=== PATIENT | female | born 1980 | race Hispanic/Latino ===

== ENCOUNTER 2017-11-04 12:03 | Emergency (ER) | payer OTHER ==
[2017-11-04] MEDS ORDERED: AMOXICILLIN 500 MG CAPSULE PO ONE (12:37)
[2017-11-04] MEDS ORDERED: KETOROLAC TROMETHAMINE 60 MG/2 ML VIAL ONE (12:37)
== END 2017-11-04 12:55 | disposition home or self-care (01) ==
LOC: EDH 12:03
DX: K04.7 Periapical abscess without sinus (principal)
CPT/HCPCS: 81025; 96372; 99283; J1885

== ENCOUNTER 2018-06-15 17:38 | Emergency (ER) | payer OTHER | END 2018-06-15 19:05 | disposition home or self-care (01) | LOC: EDH 17:38 | DX: R07.89 Other chest pain (principal); F45.8 Other somatoform disorders; F41.1 Generalized anxiety disorder; M19.90 Unspecified osteoarthritis, unspecified site; F31.9 Bipolar disorder, unspecified; E07.9 Disorder of thyroid, unspecified | CPT/HCPCS: 71046; 93005 ==

== ENCOUNTER 2018-08-14 10:08 | Emergency (ER) | payer SELFPAY | END 2018-08-14 10:18 | disposition home or self-care (01) | LOC: EDH 10:08 | DX: M77.11 Lateral epicondylitis, right elbow (principal); F31.9 Bipolar disorder, unspecified; E07.9 Disorder of thyroid, unspecified; Z87.891 Personal history of nicotine dependence | CPT/HCPCS: 99281 ==

== ENCOUNTER 2019-08-21 20:39 | Emergency (ER) | payer SELFPAY | END 2019-08-21 22:03 | disposition home or self-care (01) | LOC: EDH 20:39 | DX: F41.1 Generalized anxiety disorder (principal); M19.90 Unspecified osteoarthritis, unspecified site; F31.9 Bipolar disorder, unspecified; E07.9 Disorder of thyroid, unspecified | CPT/HCPCS: 99281 ==

== ENCOUNTER 2021-06-05 09:27 | Emergency (ER) | payer SELFPAY ==
[~2021-06-05] VITALS: Ht 157.5 cm; Wt 74.8 kg
[2021-06-05 10:12] LABS: APPEARANCE,URINE Clear (CLEAR); BILIRUBIN,URINE Negative (NEGATIVE); COLOR,URINE Yellow (YELLOW); GLUCOSE, URINE (UA) Negative (NEGATIVE); KETONES,URINE Negative (NEGATIVE); LEUKOCYTE ESTERASE ,URINE Negative (NEGATIVE); NITRATE,URINE Negative (NEGATIVE); OCCULT BLOOD,URINE Moderate (NEGATIVE); PROTEIN,URINE Negative (NEGATIVE); UROBILINOGEN,URINE 0.2 mg/dL (0.2-1.0)
[2021-06-05 10:17] LABS: HCG,QUAL RESULT NEGATIVE (NEGATIVE)
[2021-06-05] MEDS ORDERED: KETOROLAC 60 MG VIAL (30MG/ML) IM ONE (11:30)
[2021-06-05] MEDS ORDERED: ORPHENADRINE CITRATE 30 MG/ML ML IM ONE (11:30)
[2021-06-05] MEDS ORDERED: IBUP-2070 PO (13:01)
[2021-06-05] MEDS ORDERED: CYCL-309 PO (13:01)
[2021-06-05 13:22] VITALS: BP 112/66
== END 2021-06-05 13:21 | disposition home or self-care (01) ==
LOC: EDH 09:27
DX: M48.061 Spinal stenosis, lumbar region without neurogenic claudication (principal); M47.816 Spondylosis without myelopathy or radiculopathy, lumbar region; F17.200 Nicotine dependence, unspecified, uncomplicated
CPT/HCPCS: 72131; 81003; 81025; 96372 ×2; 99284; J1885; J2360

== ENCOUNTER 2022-01-28 11:01 | Emergency (ER) | payer OTHER ==
[~2022-01-28] VITALS: Ht 160 cm; Wt 74.8 kg
[~2022-01-28 11:01] MED LIST: CYCL-309 PO; IBUP-2070 PO
[2022-01-28 11:36] LABS: APPEARANCE,URINE CLEAR (CLEAR); BILIRUBIN,URINE NEGATIVE (NEGATIVE); COLOR,URINE YELLOW (YELLOW); GLUCOSE, URINE (UA) NEGATIVE (NEGATIVE); KETONES,URINE NEGATIVE (NEGATIVE); LEUKOCYTE ESTERASE ,URINE NEGATIVE (NEGATIVE); NITRATE,URINE NEGATIVE (NEGATIVE); OCCULT BLOOD,URINE MODERATE (NEGATIVE); PH,URINE 6.5 (5.0-8.0); PROTEIN,URINE NEGATIVE (NEGATIVE); UROBILINOGEN,URINE 0.2 mg/dL (0.2-1.0)
[2022-01-28 12:20] LABS: BACTERIA,URINE Rare /HPF (None Seen); SQUAMOUS EPITHELIAL CELL,UR Rare /HPF (0-2); WBC,URINE 0-1 /HPF (0-1)
[2022-01-28] MEDS ORDERED: CYCLOBENZAPRINE HCL 10 MG TABLET PO ONE (12:30)
[2022-01-28] MEDS ORDERED: KETOROLAC 60 MG VIAL (30MG/ML) IM ONE (12:30)
[2022-01-28] MEDS ORDERED: CYCL10TA16 PO (12:51)
[2022-01-28] MEDS ORDERED: NAPR-1180 PO (12:51)
[2022-01-28 13:10] VITALS: BP 113/64
== END 2022-01-28 13:15 | disposition home or self-care (01) ==
LOC: EDH 11:01
DX: S39.012A Strain of muscle, fascia and tendon of lower back, initial encounter (principal); F17.200 Nicotine dependence, unspecified, uncomplicated; Z79.1 Long term (current) use of non-steroidal anti-inflammatories (NSAID); X58.XXXA Exposure to other specified factors, initial encounter; Y93.89 Activity, other specified; Y92.89 Other specified places as the place of occurrence of the external cause; Y99.8 Other external cause status
CPT/HCPCS: 99284; 81001; 72100; 96372; J1885

== ENCOUNTER 2022-02-14 20:01 | Emergency (ER) | payer OTHER ==
[~2022-02-14] VITALS: Ht 160 cm; Wt 74.8 kg
[~2022-02-14 20:01] MED LIST changes: +CYCL10TA16 PO; +NAPR-1180 PO
[2022-02-14 20:33] LABS: HCG,QUALITATIVE URINE NEGATIVE (NEGATIVE)
[2022-02-14 20:35] LABS: APPEARANCE,URINE CLEAR (CLEAR); BILIRUBIN,URINE NEGATIVE (NEGATIVE); COLOR,URINE COLORLESS (YELLOW); GLUCOSE, URINE (UA) NEGATIVE (NEGATIVE); KETONES,URINE NEGATIVE (NEGATIVE); LEUKOCYTE ESTERASE ,URINE NEGATIVE Leu/uL (NEGATIVE); NITRATE,URINE NEGATIVE (NEGATIVE); OCCULT BLOOD,URINE MODERATE (NEGATIVE); PH,URINE 5.5 (5.0-8.0); PROTEIN,URINE NEGATIVE (NEGATIVE); UROBILINOGEN,URINE 0.2 mg/dL (0.2-1.0)
[2022-02-14 20:42] LABS: SQUAMOUS EPITHELIAL CELL,UR FEW /HPF (0-2); WBC,URINE 0-1 /HPF (0-1)
[2022-02-14 20:43] LABS: BASOPHILS % (AUTO) 0.8 % (0.0-5.0); EOSINOPHILS % (AUTO) 1.8 % (0.0-8.0); HEMATOCRIT 38.4 % (36-48); LYMPHOCYTES % (AUTO) 28.2 % (21.0-51.0); MEAN CORPUSCULAR HEMOGLOBIN 31.5 pg (27.0-33.0); MEAN CORPUSCULAR HGB CONC 33.6 g/dL (32.0-36.0); MEAN CORPUSCULAR VOLUME 93.7 fL (79-99); NEUTROPHILS % (AUTO) 60.9 % (40.0-77.0); PLATELET COUNT (AUTO) 240 K/uL (130-400); RED CELL DISTRIBUTION WIDTH 12.6 % (11.0-15.5)
[2022-02-14 20:51] LABS: CREATININE 0.7 mg/dL (0.5-1.5)
[2022-02-14 20:53] LABS: INR 0.94 (0.85-1.15); PROTHROMBIN TIME 10.3 SEC (9.6-11.6)
[2022-02-14 20:55] LABS: PARTIAL THROMBOPLASTIN TIME 27.5 SEC (26.3-35.5)
[2022-02-14 21:00] LABS: ALBUMIN 4.2 g/dL (3.5-5.0); TOTAL PROTEIN, SERUM 7.6 g/dL (6.0-8.3)
[2022-02-14 21:02] LABS: B-TYPE NATRIURETIC PEPTIDE 52 pg/mL (0-100)
[2022-02-14] MEDS ORDERED: IBUP-1493 PO (21:15)
[2022-02-14 21:31] VITALS: BP 131/75
== END 2022-02-14 21:44 | disposition home or self-care (01) ==
LOC: EDH 20:01
DX: M54.12 Radiculopathy, cervical region (principal); R07.89 Other chest pain; H53.8 Other visual disturbances; F17.200 Nicotine dependence, unspecified, uncomplicated; Z79.1 Long term (current) use of non-steroidal anti-inflammatories (NSAID)
CPT/HCPCS: 36415; 71045; 80053; 81001; 81025; 83880; 84484; 85025; 85378; 85610; 85730; 93005

== ENCOUNTER 2022-04-25 09:49 | Emergency (ER) | payer OTHER ==
[~2022-04-25] VITALS: Ht 160 cm; Wt 74.4 kg
[~2022-04-25 09:49] MED LIST changes: +IBUP-1493 PO
[2022-04-25] MEDS ORDERED: LIDOCAINE HCL 2% VISCOUS 15 ML UDCUP PO ONE (13:00)
[2022-04-25] MEDS ORDERED: ONDANSETRON ODT 4MG TAB SL ONE (13:00)
[2022-04-25] MEDS ORDERED: MAG/ALUM/SIMETH 30 ML UDCUP PO ONE (13:00)
[2022-04-25] MEDS ORDERED: HYDROCORTISONE 25 MG SUPPOSITORY PR SCH (13:00)
[2022-04-25] MEDS ORDERED: FAMOTIDINE 20MG TAB PO ONE (13:00)
[2022-04-25 13:10] LABS: BASOPHILS % (AUTO) 0.8 % (0.0-5.0); EOSINOPHILS % (AUTO) 3.1 % (0.0-8.0); HEMATOCRIT 39.2 % (36-48); LYMPHOCYTES % (AUTO) 25.4 % (21.0-51.0); MEAN CORPUSCULAR HEMOGLOBIN 31.3 pg (27.0-33.0); MEAN CORPUSCULAR HGB CONC 33.9 g/dL (32.0-36.0); MEAN CORPUSCULAR VOLUME 92.2 fL (79-99); MONOCYTES % (AUTO) 7.8 % (3.0-13.0); NEUTROPHILS % (AUTO) 62.4 % (40.0-77.0); PLATELET COUNT (AUTO) 255 K/uL (130-400); RED BLOOD CELL COUNT(AUTO) 4.25 MIL/uL (4.00-5.50); RED CELL DISTRIBUTION WIDTH 12.5 % (11.0-15.5); WHITE BLOOD COUNT (AUTO) 10.5 K/uL (4.8-10.8)
[2022-04-25 13:33] LABS: APPEARANCE,URINE CLEAR (CLEAR); BILIRUBIN,URINE NEGATIVE (NEGATIVE); COLOR,URINE YELLOW (YELLOW); GLUCOSE, URINE (UA) NEGATIVE (NEGATIVE); KETONES,URINE NEGATIVE (NEGATIVE); LEUKOCYTE ESTERASE ,URINE NEGATIVE Leu/uL (NEGATIVE); NITRATE,URINE NEGATIVE (NEGATIVE); OCCULT BLOOD,URINE MODERATE (NEGATIVE); PROTEIN,URINE NEGATIVE (NEGATIVE); UROBILINOGEN,URINE 0.2 mg/dL (0.2-1.0)
[2022-04-25 13:38] LABS: ALBUMIN 3.9 g/dL (3.5-5.0); CREATININE 0.7 mg/dL (0.5-1.5); TOTAL PROTEIN, SERUM 7.8 g/dL (6.0-8.3)
[2022-04-25 13:44] LABS: HCG,QUALITATIVE URINE NEGATIVE (NEGATIVE)
[2022-04-25 14:27] LABS: BACTERIA,URINE Rare /HPF (None Seen); SQUAMOUS EPITHELIAL CELL,UR Rare /HPF (0-2); WBC,URINE 0-1 /HPF (0-1)
[2022-04-25] MEDS ORDERED: DOCU-116 PO (15:00)
[2022-04-25] MEDS ORDERED: ONDA4TAB10 PO (15:00)
[2022-04-25] MEDS ORDERED: WITC1MED TP (15:00)
[2022-04-25] MEDS ORDERED: FAMO-136 PO (15:00)
[2022-04-25] MEDS ORDERED: HYDR30CR79 RC (15:00)
[2022-04-25] MEDS ORDERED: PANT40TA PO (15:00)
[2022-04-25 15:13] VITALS: BP 110/58
== END 2022-04-25 15:14 | disposition home or self-care (01) ==
LOC: EDH 09:49
DX: K29.70 Gastritis, unspecified, without bleeding (principal); N83.201 Unspecified ovarian cyst, right side; K64.4 Residual hemorrhoidal skin tags; Z79.899 Other long term (current) drug therapy; Z98.890 Other specified postprocedural states
CPT/HCPCS: 36415; 74176; 80053; 81001; 81025; 83690; 85025

== ENCOUNTER 2023-04-20 12:17 | Emergency (ER) | payer OTHER ==
[~2023-04-20] VITALS: Ht 160 cm; Wt 81.6 kg
[~2023-04-20 12:17] MED LIST changes: +DOCU-116 PO; +FAMO-136 PO; +HYDR30CR79 RC; +ONDA4TAB10 PO; +PANT40TA PO; +WITC1MED TP
[2023-04-20] MEDS ORDERED: DiphenhydrAMINE HCL 50 MG/ML VIAL IM ONE (13:00)
[2023-04-20] MEDS ORDERED: PROCHLORPERAZINE 10MG/2ML INJ IV ONE (13:00)
[2023-04-20 13:12] LABS: BASOPHILS # (AUTO) 0.04 K/uL (0.00-0.20); BASOPHILS % (AUTO) 0.4 % (0.0-5.0); EOSINOPHILS # (AUTO) 0.14 K/uL (0.00-0.70); EOSINOPHILS % (AUTO) 1.6 % (0.0-8.0); HEMATOCRIT 38.1 % (36-48); IMMATURE GRANULOCYTE ABSOLUTE 0.04 K/uL (0-1); LYMPHOCYTES # (AUTO) 1.9 K/uL (1.0-4.8); LYMPHOCYTES % (AUTO) 20.7 % (21.0-51.0); MEAN CORPUSCULAR HEMOGLOBIN 32.3 pg (27.0-33.0); MEAN CORPUSCULAR HGB CONC 34.4 g/dL (32.0-36.0); MEAN CORPUSCULAR VOLUME 94.1 fL (79-99); MONOCYTES # (AUTO) 0.6 K/uL (0.1-1.0); MONOCYTES % (AUTO) 6.6 % (3.0-13.0); NEUTROPHILS # (AUTO) 6.3 K/uL (1.8-7.7); NEUTROPHILS % (AUTO) 70.3 % (40.0-77.0); PLATELET COUNT (AUTO) 266 K/uL (130-400); RED BLOOD CELL COUNT(AUTO) 4.05 MIL/uL (4.00-5.50); RED CELL DISTRIBUTION WIDTH 12.8 % (11.0-15.5); WHITE BLOOD COUNT (AUTO) 8.9 K/uL (4.8-10.8)
[2023-04-20 13:19] LABS: CREATININE 0.8 mg/dL (0.5-1.5)
[2023-04-20 13:23] LABS: ALBUMIN 3.6 g/dL (3.5-5.0); BILIRUBIN,TOTAL 0.2 mg/dL (0.2-1.0); TOTAL PROTEIN, SERUM 7.3 g/dL (6.0-8.3)
[2023-04-20 14:20] LABS: ERYTHROCYTE SEDIMENTATION RATE 15 MM/HR (0-20)
[2023-04-20 14:28] VITALS: BP 121/74; PULSE 62; RESP 16; O2SAT 99
[2023-04-20] MEDS ORDERED: SUMA25TA9 PO (14:47)
== END 2023-04-20 15:00 | disposition home or self-care (01) ==
LOC: EDH 12:17
DX: G43.909 Migraine, unspecified, not intractable, without status migrainosus (principal); F41.9 Anxiety disorder, unspecified; F17.200 Nicotine dependence, unspecified, uncomplicated; Z79.899 Other long term (current) drug therapy; Z98.890 Other specified postprocedural states
CPT/HCPCS: 99285; 96374; 70450; 80053; 85025; 85651; 36415; 96372; J1200; J0780

== ENCOUNTER 2024-05-15 08:59 | Emergency (ER) | payer BC ==
[~2024-05-15] VITALS: Ht 160 cm; Wt 79.4 kg
[~2024-05-15 08:59] MED LIST changes: +ONDA-243 PO; -ONDA4TAB10 PO; +SUMA25TA9 PO
--- NOTE | 2024-05-15 09:26 | ERN ---
ED Note History of Present Illness Stated Complaint: DIZZY Chief Complaint: Dizzy/Light Headed Time Seen by MD: 09:03 Dictation: Patient is a 44-year-old female with a past medical history of hypothyroidism, bipolar disorder, and anxiety presents to the ED for dizziness and weakness. Patient states she felt dizzy this morning with the episode lasting about 10 minutes accompanied by blurry vision and weakness. She states she sounds like she had to fall but was able to grab onto something to regain her balance. She denies falling. Patient denies any chest pain, shortness of breath, or flu-like symptoms. Patient admits to some nausea but denies any vomiting. Allergies: Coded Allergies: No Known Drug Allergies (Unverified Allergy, Unknown, 08/21/19) Home Meds Active Scripts Cephalexin Monohydrate (Keflex) 500 Mg Cap, 1 CAP PO BID for 10 Days, #20 CAP 0 Refills Prov:ALEXEI LY MD 05/15/24 Prednisone (Prednisone) 5 Mg Tab.ds.pk, 0 PO AD for 6 Days, #48 TAB 0 Refills 6 day dose pack taper Prov:ALEXEI LY MD 05/15/24 Sumatriptan Succinate (Sumatriptan Succinate) 25 Mg Tablet, 25 MG PO DAILY PRN for HEADACHE, #7 TAB Prov:ELIF SEGURA MD 04/20/23 Tomasz Nieto (Hemorrhoidal Medicated Wipes) 1 Each Med..pad, 1 EACH TP TID, #15 EA Prov:TERRANCE HECTOR 04/25/22 Hydrocortisone (Anusol-Hc) 30 Gm Cream..g., 30 GM RC TID, #1 TUBE Prov:TERRANCE HECTOR 04/25/22 Docusate Sodium (Colace) 100 Mg Capsule, 100 MG PO BID, #30 CAP Prov:TERRANCE HECTOR 04/25/22 Famotidine (Pepcid) 20 Mg Tablet, 20 MG PO DAILY, #10 TAB Prov:TERRANCE HECTOR 04/25/22 Pantoprazole Sodium (Protonix) 40 Mg Tablet.dr, 40 MG PO DAILY, #30 TAB Prov:TERRANCE HECTOR 04/25/22 Ondansetron (Ondansetron Odt) 4 Mg Tab.rapdis, 4 MG PO TID, #10 TAB Prov:MARIA ANTONIA HECTORRamyJACKSON APPRAISER LAND 04/25/22 Ibuprofen (Motrin/Advil) 800 Mg Tab, 800 MG PO TIDP PRN for PAIN, #30 TAB Prov:SHERYL COTO MD 02/14/22 Cyclobenzaprine HCl (Flexeril) 10 Mg Tab, 10 MG PO BID, #30 TAB Prov:DARREN TAYLOR 01/28/22 Naproxen (Naprosyn) 500 Mg Tablet, 500 MG PO BIDPC, #60 TAB Prov:DARREN TAYLOR 01/28/22 Cyclobenzaprine HCl (Cyclobenzaprine HCl) 10 Mg Tablet, 10 MG PO TID PRN for back pain, #15 TAB 0 Refills Prov:HIMANSHU KNIGHT MD 06/05/21 Ibuprofen (Ibuprofen) 600 Mg Tablet, 600 MG PO Q6H PRN for PAIN, #30 TAB 0 Refills Prov:HIMANSHU KNIGHT MD 06/05/21 Past Medical History Past Medical History: Anxiety, Bipolar, Hypothyroid Surgical History: None Surgical History Other: Tubal ligation Family History: Negative Social History: Smokers LMP: May 09, 2024 : 9 Para: 6 Aborts: 3 Review of System Dictation Constitutional-no chills, weight loss/gain, fever Eyes-no injury, pain, redness and discharge ENT-no injury, pain, swelling Cardiovascular no chest pain, palpitations, edema Respiratory no shortness of breath, cough, wheezing Abdomen/GI-no abdominal pain, diarrhea, constipation, vomiting, nausea Back no injury and pain Genitourinary no injury, bleeding and discharge Musculoskeletal/extremities no injury, deformity Skin no rash, discoloration Neuro-no headache, numbness, tingling, seizures, tremors. Positive for dizziness and weakness Psych-no suicidal ideation, homicidal ideation, hallucinations, depression, anxiety, memory loss Initial Vital Sign VS Vital Signs Date Time Temp Pulse Resp B/P (MAP) Pulse Ox O2 Delivery O2 Flow Rate FiO2 05/15/24 09:00 98.1 65 20 122/80 99 Room Air 0 05/15/24 10:18 21 Physical Exam Dictation VITAL SIGNS: Reviewed. GENERAL APPEARANCE: Alert, oriented x3, no acute distress, obese. HEAD AND FACE: Non-traumatic. EYES: PERRL, pink conjunctivas, eyelid no trauma, anterior chamber clear. NOSE: No discharge, no bleeding. OROPHARYNX: Mouth normal, teeth no caries, tongue pink. Pharynx clear, no erythema. Tonsils no exudates, no abscesses noted. Mucous membrane moist. NECK: Supple, non-tender, no thyromegaly, no masses, no JVD, no bruits. BREAST: Deferred. CHEST: No tenderness, no crepitus, no paradoxical movement, no retractions. LUNGS: Clear, well-ventilated, symmetric, no rales, no wheezing, no rhonchi, no stridor, good breath sounds bilaterally. HEART: Regular rate, regular rhythm, no murmur, no gallops. VASCULAR: No peripheral edema. ABDOMEN: Soft, positive bowel sounds, nondistended, no guarding, nontender, no rebound, no masses no hepatomegaly, no splenomegaly, no Norton's sign, no hernias. RECTAL: Swelling, lesion, possible pilonidal cyst GENITAL: Deferred. NEUROLOGICAL: Normal speech, gross motor function intact, gross sensory function intact. MUSCULOSKELETAL: Neck nontender, full range of motion, back nontender, full range of motion. EXTREMITIES: Nontender, full range of motion. SKIN: Color pink, dry, no turgor, no rash, no lacerations, no abrasions, no contusions. LYMPHATICS: Deferred. Results (Laboratory/Radiology) Laboratory/Radiology ED Course ED Course Medical Decision Making [facility] MDM INITIAL IMPRESSION Initial history and physical concerning for dehydration, anemia. Contributing medical problems: Menorrhagia I have reviewed the triage nursing notes and vital signs. Initial plan: Laboratory evaluation, UA, and Covid swab DATA REVIEW I have reviewed additional NN, repeat VS, and monitoring where indicated. Heart rate, blood pressure, and O2 saturation are acceptable. ED COURSE Interventions: Reassessment: DISPOSITION Final diagnostic impression: UTI, lymphadenitis I discussed my findings, clinical impression and treatment recommendations with the patient. My final plan for disposition was made based upon -mild risk of complications and potential morbidity of the patient's condition. -Discussion with the patient regarding management options. Patient will be discharged on antibiotics and steroids and advised to follow up with primary care physician DX & DISP Disposition: Discharge Departure Impression: Primary Impression: Urinary tract infection Additional Impression: Lymphadenitis Condition: Stable Scripts Cephalexin Monohydrate (Keflex) 500 Mg Cap 1 CAP PO BID for 10 Days, #20 CAP 0 Refills Prov: ALEXEI LY MD 05/15/24 Prednisone (Prednisone) 5 Mg Tab.ds.pk 0 PO AD for 6 Days, #48 TAB 0 Refills 6 day dose pack taper Prov: ALEXEI LY MD 05/15/24 Referrals: ART VEGA (PCP) Time of Disposition: 11:22 I have reviewed I have reviewed the case I WAS PRESENT AND PARTICIPATED IN THE CARE OF THIS PATIENT ALONGSIDE WITH THE RESIDENT PHYSICIAN. I HAVE REVIEWED AND PERSONALLY MADE AND APPROVED THE MANAGEMENT PLAN THAT IS DOCUMENTED IN THE NOTE BY MYSELF WITH THE RESIDENT PHYSICIAN. I ACKNOWLEDGED FOR RESPONSIBILITY FOR THE PATIENT'S MANAGEMENT PLAN. I have examined patient ALEXEI LY MD May 15, 2024 09:26 WALTER AGUAYO MD May 20, 2024 07:28
--- NOTE | 2024-05-15 09:28 | EKG ---
[facility] Test Date: 2024-05-15 Test Time: 09:07:30 Pat Name: JANET HARRIS Department: ED Room: Gender: F Instructor Pilot: [id number] : 1980 Requested By: WALTER AGUAYO Order Number: [id number] Reading MD: Kvng Neville Measurements Intervals [place] Rate: 59 P: 48 ME: 138 QRS: 78 QRSD: 100 T: 62 QT: 451 QTc: 446 Interpretive Statements Sinus rhythm Probable inferior infarct, old Compared to ECG 02/14/2022 19:46:57 Myocardial infarct finding now present Electronically Signed On 05-15-2024 17:04:53 IS/IT PROJECT MANAGER by Kvng Neville Please click the below link to view image of tracing.
[2024-05-15 09:38] LABS: BASOPHILS # (AUTO) 0.06 K/uL (0.00-0.20); BASOPHILS % (AUTO) 0.8 % (0.0-5.0); EOSINOPHILS # (AUTO) 0.19 K/uL (0.00-0.70); EOSINOPHILS % (AUTO) 2.5 % (0.0-8.0); HEMATOCRIT 38.3 % (36-48); IMMATURE GRANULOCYTE ABSOLUTE 0.04 K/uL (0-1); LYMPHOCYTES # (AUTO) 1.8 K/uL (1.0-4.8); MEAN CORPUSCULAR HEMOGLOBIN 30.3 pg (27.0-33.0); MEAN CORPUSCULAR HGB CONC 32.6 g/dL (32.0-36.0); MONOCYTES # (AUTO) 0.5 K/uL (0.1-1.0); MONOCYTES % (AUTO) 6.4 % (3.0-13.0); NEUTROPHILS # (AUTO) 5.1 K/uL (1.8-7.7); NEUTROPHILS % (AUTO) 66.8 % (40.0-77.0); PLATELET COUNT (AUTO) 244 K/uL (130-400); RED BLOOD CELL COUNT(AUTO) 4.12 MIL/uL (4.00-5.50); RED CELL DISTRIBUTION WIDTH 12.8 % (11.0-15.5); WHITE BLOOD COUNT (AUTO) 7.6 K/uL (4.8-10.8)
[2024-05-15 09:40] LABS: APPEARANCE,URINE CLEAR (CLEAR); BILIRUBIN,URINE NEGATIVE (NEGATIVE); COLOR,URINE LIGHT-YELLOW (YELLOW); GLUCOSE, URINE (UA) NEGATIVE (NEGATIVE); KETONES,URINE NEGATIVE (NEGATIVE); LEUKOCYTE ESTERASE ,URINE 25 Leu/uL (NEGATIVE); NITRATE,URINE NEGATIVE (NEGATIVE); OCCULT BLOOD,URINE MODERATE (NEGATIVE); PROTEIN,URINE NEGATIVE (NEGATIVE); UROBILINOGEN,URINE 0.2 mg/dL (0.2-1.0)
[2024-05-15 09:41] LABS: ADD UA MICROSCOPIC YES
[2024-05-15 09:43] LABS: MUCUS,URINE RARE LPF (None Seen); SQUAMOUS EPITHELIAL CELL,UR RARE /HPF (0-2); WBC,URINE 0-1 /HPF (0-1)
[2024-05-15 09:44] LABS: CREATININE 0.8 mg/dL (0.5-1.0); POTASSIUM 4.3 mmol/L (3.5-5.1)
[2024-05-15 09:54] LABS: CREATINE KINASE, TOTAL 118 U/L (21-232)
[2024-05-15] MEDS: 0.9%NACL 1000ML 1,000 ML IV ONE (10:07)
--- NOTE | 2024-05-15 11:03 | HMCIMG ---
US SOFT TISSUE NECK REASON: tender lymph node on right. COMPARISON: None TECHNIQUE: Soft tissue neck ultrasound study was performed. FINDINGS: There is right cervical lymph node measuring 10 x 5 x 10 mm. IMPRESSION: Right cervical lymph node measuring 10 x 5 x 10 mm.
[2024-05-15] MEDS ORDERED: PRED5TAB44 PO (11:25)
[2024-05-15] MEDS ORDERED: CEPH500B PO (11:25)
[2024-05-15 11:33] VITALS: BP 129/70; PULSE 63; RESP 16; TEMP 97.7; O2SAT 99
== END 2024-05-15 11:44 | disposition home or self-care (01) ==
LOC: EDH 08:59
DX: N39.0 Urinary tract infection, site not specified (principal); E03.9 Hypothyroidism, unspecified; F17.200 Nicotine dependence, unspecified, uncomplicated; F31.9 Bipolar disorder, unspecified; Z79.899 Other long term (current) drug therapy; Z98.51 Tubal ligation status
CPT/HCPCS: 99284; 96360; 96361; 82550; 84484; 80048; 84703; 85025; 81001; 36415; 76536; 93005; J7030

== ENCOUNTER 2024-06-26 06:40 | Emergency (ER) | payer BC ==
[~2024-06-26] VITALS: Ht 157.5 cm; Wt 81.6 kg
[~2024-06-26 06:40] MED LIST changes: +CEPH500B PO; +PRED5TAB44 PO
--- NOTE | 2024-06-26 07:34 | ERN ---
General Chief Complaint: Nausea,Vomiting,Diarrhea Stated Complaint: VOMITING Time Seen by MD: 07:02 History of Present Illness Initial Comments 44-year-old female, history of hypothyroidism and gastritis, denies surgical history, presents for general body weakness, on and off fever, vomiting, loose stools, sore throat and a mild cough over the last few days. On and off symptoms. They improve with Tylenol. No abdominal tenderness or pain, no chest pain, no dyspnea. No sputum production. Allergies: Coded Allergies: No Known Drug Allergies (Unverified Allergy, Unknown, 08/21/19) Home Meds Active Scripts Cephalexin Monohydrate (Keflex) 500 Mg Cap, 1 CAP PO BID for 10 Days, #20 CAP 0 Refills Prov:ALEXEI LY MD 05/15/24 Prednisone (Prednisone) 5 Mg Tab.ds.pk, 0 PO AD for 6 Days, #48 TAB 0 Refills 6 day dose pack taper Prov:ALEXEI LY MD 05/15/24 Sumatriptan Succinate (Sumatriptan Succinate) 25 Mg Tablet, 25 MG PO DAILY PRN for HEADACHE, #7 TAB Prov:ELIF SEGURA MD 04/20/23 Tomasz Nieto (Hemorrhoidal Medicated Wipes) 1 Each Med..pad, 1 EACH TP TID, #15 EA Prov:TERRANCE HECTORP 04/25/22 Hydrocortisone (Anusol-Hc) 30 Gm Cream..g., 30 GM RC TID, #1 TUBE Prov:TERRANCE HECTORP 04/25/22 Docusate Sodium (Colace) 100 Mg Capsule, 100 MG PO BID, #30 CAP Prov:TERRANCE HECTORP 04/25/22 Famotidine (Pepcid) 20 Mg Tablet, 20 MG PO DAILY, #10 TAB Prov:TERRANCE HECTOR [facility] 04/25/22 Pantoprazole Sodium (Protonix) 40 Mg Tablet.dr, 40 MG PO DAILY, #30 TAB Prov:TERRANCE HECTOR 04/25/22 Ondansetron (Ondansetron Odt) 4 Mg Tab.rapdis, 4 MG PO TID, #10 TAB Prov:TERRANCE HECTORP 04/25/22 Ibuprofen (Motrin/Advil) 800 Mg Tab, 800 MG PO TIDP PRN for PAIN, #30 TAB Prov:SHERYL COTO MD 02/14/22 Cyclobenzaprine HCl (Flexeril) 10 Mg Tab, 10 MG PO BID, #30 TAB Prov:DARREN TAYLOR 01/28/22 Naproxen (Naprosyn) 500 Mg Tablet, 500 MG PO BIDPC, #60 TAB Prov:DARREN TAYLOR 01/28/22 Cyclobenzaprine HCl (Cyclobenzaprine HCl) 10 Mg Tablet, 10 MG PO TID PRN for back pain, #15 TAB 0 Refills Prov:HIMANSHU KNIGHT MD 06/05/21 Ibuprofen (Ibuprofen) 600 Mg Tablet, 600 MG PO Q6H PRN for PAIN, #30 TAB 0 Refills Prov:HIMASNHU KNIGHT MD 06/05/21 Past Medical History Past Medical History: Hyperthyroid Past Surgical History: None Surgical History Other: Tubal ligation Family History Family History: Negative Social History Social History: Smokers Female( History) : 9 Para: 6 Aborts: 3 ROS Dictation CONSTITUTIONAL: General body weakness fever HEAD/FACE: No signs of trauma. EENT: Sore throat RESPIRATORY: No cough, no orthopnea, no SOB, no stridor, no wheezing. CARDIOVASCULAR: No chest pain, no edema, no palpitations, no syncope. GASTROINTESTINAL/ABDOMINAL: Vomiting diarrhea GENITOURINARY: No abnormal discharge, no dysuria, no frequent urination, no hematuria. No complaints of pain in the genitals. MUSCULOSKELETAL: No back pain, no gout, no joint pain, no joint swelling, no muscle pain, no muscle stiffness, no neck pain. INTEGUMENTARY: No change in color, no change in hair/nails, no dryness, no lesion, no lumps, no rash. NEUROLOGICAL/PSYCH: No anxiety, not depressed, no emotional problem, no headache, no numbness, no pre-existing deficit, no history of seizures, no tremors, no weakness. HEMATOLOGIC/LYMPHATIC: Not anemic, no history of blood clots, no apparent bleeding, no bruising, glands not swollen. All Systems Negative, Except as Noted. Physical Exam Physical Exam Dictation VITAL SIGNS: Reviewed. GENERAL APPEARANCE: Alert, oriented x3, no acute distress. HEAD AND FACE: Non-traumatic. EYES: PERRL, pink conjunctivas, eyelid no trauma, anterior chamber clear. EARS: Pinnas intact and no signs of trauma or erythema. Ear canals clear and no discharge. TMs no erythema. NOSE: No discharge, no bleeding. OROPHARYNX: Mouth normal, teeth no caries, tongue pink. Pharynx clear, no erythema. Tonsils no exudates, no abscesses noted. Mucous membrane moist. NECK: Supple, non-tender, no thyromegaly, no masses, no JVD, no bruits. BREAST: Deferred. CHEST: No tenderness, no crepitus, no paradoxical movement, no retractions. LUNGS: Clear, well-ventilated, symmetric, no rales, no wheezing, no rhonchi, no stridor, good breath sounds bilaterally. HEART: Regular rate, regular rhythm, no murmur, no gallops. VASCULAR: No peripheral edema. ABDOMEN: Soft, positive bowel sounds, nondistended, no guarding, nontender, no rebound, no masses no hepatomegaly, no splenomegaly, no Norton's sign, no hernias. RECTAL: Deferred. GENITAL: Deferred. NEUROLOGICAL: Normal speech, gross motor function intact, gross sensory function intact. MUSCULOSKELETAL: Neck nontender, full range of motion, back nontender, full range of motion. EXTREMITIES: Nontender, full range of motion. SKIN: Color pink, dry, no turgor, no rash, no lacerations, no abrasions, no contusions. LYMPHATICS: Deferred. Results Laboratory and Microbiology Lab and Micro Result Laboratory Tests Test 06/26/24 06:05 06/26/24 06:51 Urine Color LIGHT-YELLOW (YELLOW) Urine Appearance CLEAR (CLEAR) Urine pH 6.0 (5.0-8.0) Urine Specific [place] 1.008 (1.001-1.031) Urine Protein NEGATIVE mg/dL (NEGATIVE) Urine Glucose (UA) NEGATIVE mg/dL (NEGATIVE) Urine Ketones NEGATIVE mg/dL (NEGATIVE) Urine Occult Blood MODERATE (NEGATIVE) H Urine Nitrate NEGATIVE (NEGATIVE) Urine Bilirubin NEGATIVE mg/dL (NEGATIVE) Urine Urobilinogen 0.2 mg/dL (0.2-1.0) Urine Leukocyte Esterase 75 [place]/uL (NEGATIVE) H Urine RBC 6-10 /HPF (0-1) H Urine WBC 2-5 /HPF (0-1) H Urine Squamous Epithelial Cells FEW /HPF (0-2) Urine Bacteria RARE /HPF (None Seen) Urine HCG, Qualitative NEGATIVE (NEGATIVE) Influenza Type A Antigen Negative For Type A Influenza Type B Antigen Negative For Type B SARS-CoV-2 Antigen (Rapid) PRESUMPTIVE NEGATIVE Group A Streptococcus Rapid negative (NEGATIVE) ED Course Orders Procedure Category Date Status Time Urinalysis Profile LAB 06/26/24 Complete 07:02 ,Urine Test LAB 06/26/24 Complete 07:02 Covid19 (Sars Antigen LAB 06/26/24 Complete Rapid) 07:02 Influenza Type A & B, LAB 06/26/24 Complete Rapid 07:02 Rapid (Group A Strep) LAB 06/26/24 Complete 07:02 Ondansetron Odt 4mg PHA 06/26/24 Complete Tab (Zofran 4mg Odt) 07:30 Culture Urine MARLEE 06/26/24 In Process 07:49 Current Medications Medications (Trade) Dose Ordered Sig/Brandie Route PRN Reason Start Time Stop Time Status Last Admin Dose Admin Ondansetron HCl (zoFRAN 4MG ODT) 4 mg ONCE ONCE SL 06/26/24 07:30 06/26/24 07:31 DC 06/26/24 07:43 Vital Signs Date Time Temp Pulse Resp B/P (MAP) Pulse Ox O2 Delivery O2 Flow Rate FiO2 06/26/24 07:50 98.1 60 18 112/66 99 Room Air* 0 21 06/26/24 06:57 98.1 74 19 119/74 100 Room Air* 0 21 06/26/24 06:57 98.1 74 18 118/74 98 Room Air DX & DISP Disposition: Discharge Departure Impression: Primary Impression: Flu-like symptoms Additional Impression: UTI (urinary tract infection) Condition: Stable Scripts Ondansetron (Ondansetron Odt) 4 Mg Tab.rapdis 1 TAB PO Q6HPRN PRN for nausea/vomiting for 3 Days, #9 TAB 0 Refills Prov: JACKSON AYERS DO 06/26/24 Amoxicillin/Potassium Clav (Amox Tr-K Clv 875-125 mg Tab) 875 Mg-125 Mg Tablet 1 TAB PO BID for 7 Days, #14 TAB 0 Refills Prov: JACKSON AYERS DO 06/26/24 Additional Instructions: Your symptoms are consistent with a flu-like illness. The flu & COVID swabs were negative. Based on your urinalysis you also may have a urinary tract infection. Alternate Tylenol and ibuprofen as needed for fever or discomfort. These medications are [id number]. I have prescribed ondansetron dissolvable tabs to use as needed for nausea and vomiting. I have prescribed amoxicillin / clavulanic acid, which is an antibiotic. Use as needed. Please follow up with the primary doctor if you continue with symptoms in 72 hours. Return to the emergency department as needed. Referrals: ART VEGA (PCP) JACKSON AYERS DO Jun 26, 2024 07:34
[2024-06-26 07:37] LABS: RAPID GROUP A STREP negative (NEGATIVE)
[2024-06-26 07:43] LABS: APPEARANCE,URINE CLEAR (CLEAR); BILIRUBIN,URINE NEGATIVE (NEGATIVE); COLOR,URINE LIGHT-YELLOW (YELLOW); GLUCOSE, URINE (UA) NEGATIVE (NEGATIVE); KETONES,URINE NEGATIVE (NEGATIVE); LEUKOCYTE ESTERASE ,URINE 75 Leu/uL (NEGATIVE); NITRATE,URINE NEGATIVE (NEGATIVE); OCCULT BLOOD,URINE MODERATE (NEGATIVE); PROTEIN,URINE NEGATIVE (NEGATIVE); UROBILINOGEN,URINE 0.2 mg/dL (0.2-1.0)
[2024-06-26] MEDS: ondanSETRON ODT 4MG TAB SL ONE (07:43)
[2024-06-26 07:46] LABS: INFLUENZA TYPE A Negative For Type A (NEGATIVE); INFLUENZA TYPE B Negative For Type B (NEGATIVE)
[2024-06-26 07:48] LABS: ADD UA MICROSCOPIC YES
[2024-06-26 07:50] VITALS: BP 112/66; PULSE 60; RESP 18; TEMP 98.1; O2SAT 99
[2024-06-26 07:51] LABS: COVID19 (SARS ANTIGEN RAPID) PRESUMPTIVE NEGATIVE (NEGATIVE)
[2024-06-26 07:52] LABS: BACTERIA,URINE RARE /HPF (None Seen); SQUAMOUS EPITHELIAL CELL,UR FEW /HPF (0-2)
[2024-06-26 07:53] LABS: HCG,QUALITATIVE URINE NEGATIVE (NEGATIVE)
[2024-06-26] MEDS ORDERED: AMOX1TAB16 PO (08:04)
[2024-06-26] MEDS ORDERED: ONDA-243 PO (08:04)
== END 2024-06-26 08:14 | disposition home or self-care (01) ==
LOC: EDH 06:40
DX: N39.0 Urinary tract infection, site not specified (principal); E03.9 Hypothyroidism, unspecified; F17.200 Nicotine dependence, unspecified, uncomplicated; Z79.899 Other long term (current) drug therapy; Z98.51 Tubal ligation status; Z20.822 Contact with and (suspected) exposure to COVID-19
CPT/HCPCS: 81001; 81025; 87086; 87426; 87804; 87880; 99283

== ENCOUNTER 2024-08-08 19:17 | Emergency (ER) | payer BC ==
[~2024-08-08] VITALS: Ht 160 cm; Wt 81.6 kg
[~2024-08-08 19:17] MED LIST changes: +AMOX1TAB16 PO
--- NOTE | 2024-08-08 19:37 | ERN ---
ED Note History of Present Illness Stated Complaint: CHEST PAIN Chief Complaint: Chest Pain Time Seen by MD: 19:19 Dictation: This is a 44-year-old female who presented to the emergency room via EMS with complaints of chest pain all day today. 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 that is when she started experiencing midsternal chest pain. It lasted for about an hour or so. Throughout the day she has taken hydroxyzine intermittently with some relief. Towards the end she thought it was radiating to the left arm with numbness of the left arm and her mouth felt very dry so she came in for evaluation. History of any previous NH She denied any diaphoresis, presyncope or syncope. She usually has a history of gastroesophageal reflux symptoms and heartburn but today she denied it. Temperature 98.1 pulse 88 respirations 20 blood pressure 133/92 with a pulse oximetry of 99% on room air Has a history of hyperthyroidism and anxiety She is also a daily cigarette smoker Allergies: Coded Allergies: No Known Drug Allergies (Unverified Allergy, Unknown, 08/21/19) Home Meds Active Scripts Ondansetron (Ondansetron Odt) 4 Mg Tab.rapdis, 1 TAB PO Q6HPRN PRN for nausea/vomiting for 3 Days, #9 TAB 0 Refills Prov:JACKSON AYERS DO 06/26/24 Amoxicillin/Potassium Clav (Amox Tr-K Clv 875-125 mg Tab) 875 Mg-125 Mg Tablet, 1 TAB PO BID for 7 Days, #14 TAB 0 Refills Prov:JACKSON AYERS DO 06/26/24 Cephalexin Monohydrate (Keflex) 500 Mg Cap, 1 CAP PO BID for 10 Days, #20 CAP 0 Refills Prov:ALEXEI LY MD 05/15/24 Prednisone (Prednisone) 5 Mg Tab.ds.pk, 0 PO AD for 6 Days, #48 TAB 0 Refills 6 day dose pack taper Prov:ALEXEI LY MD 05/15/24 Sumatriptan Succinate (Sumatriptan Succinate) 25 Mg Tablet, 25 MG PO DAILY PRN for HEADACHE, #7 TAB Prov:ELIF SEGURA MD 04/20/23 Witch Emilia (Hemorrhoidal Medicated Wipes) 1 Each Med..pad, 1 EACH TP TID, #15 EA Prov:[facility] 04/25/22 Hydrocortisone (Anusol-Hc) 30 Gm Cream..g., 30 GM RC TID, #1 TUBE Prov:[facility] 04/25/22 Docusate Sodium (Colace) 100 Mg Capsule, 100 MG PO BID, #30 CAP Prov:[place],[facility] 04/25/22 Famotidine (Pepcid) 20 Mg Tablet, 20 MG PO DAILY, #10 TAB Prov:[place],[facility] 04/25/22 Pantoprazole Sodium (Protonix) 40 Mg Tablet.dr, 40 MG PO DAILY, #30 TAB Prov:[facility] 04/25/22 Ondansetron (Ondansetron Odt) 4 Mg Tab.rapdis, 4 MG PO TID, #10 TAB Prov:[facility] 04/25/22 Ibuprofen (Motrin/Advil) 800 Mg Tab, 800 MG PO TIDP PRN for PAIN, #30 TAB Prov:SHERYL COTO MD 02/14/22 Cyclobenzaprine HCl (Flexeril) 10 Mg Tab, 10 MG PO BID, #30 TAB Prov:DARREN TAYLOR 01/28/22 Naproxen (Naprosyn) 500 Mg Tablet, 500 MG PO BIDPC, #60 TAB Prov:DARREN TAYLOR 01/28/22 Cyclobenzaprine HCl (Cyclobenzaprine HCl) 10 Mg Tablet, 10 MG PO TID PRN for back pain, #15 TAB 0 Refills Prov:HIMANSHU KNIGHT MD 06/05/21 Ibuprofen (Ibuprofen) 600 Mg Tablet, 600 MG PO Q6H PRN for PAIN, #30 TAB 0 Refills Prov:HIMANSHU KNIGHT MD 06/05/21 Past Medical History Past Medical History: Anxiety, Hyperthyroid Surgical History: None Surgical History Other: Tubal ligation Family History: Negative Social History: Smokers : 9 Para: 6 Aborts: 3 RN Note Reviewed/Agreed w/PFSH: Yes Review of System Dictation Constitutional: Negative for fever,chills, and weight loss Eyes: Negative for injury, pain,redness, and discharge ENT: Negative for injury,pain or swelling Cardiovascular: Positive for chest pain, no palpitations, and edema Respiratory: Negative for shortness of breath, cough, and wheezing, Abdomen/GI: Negative for abdominal pain, nausea, vomiting, diarrhea, and constipation Back: Negative for injury and pain : Negative for injury, bleeding and discharge MS/Extremity: Negative for injury and deformity Skin: Negative for rash, and discoloration Neuro: Negative for headache, weakness, numbness, tingling, and seizure Psych: Negative for suicide ideation, homicidal ideation, and hallucinations history of anxiety Initial Vital Sign VS Vital Signs Date Time Temp Pulse Resp B/P (MAP) Pulse Ox O2 Delivery O2 Flow Rate FiO2 08/08/24 19:18 98.1 88 20 133/92 99 Room Air 0 Physical Exam Dictation General: awake, alert, NAD Head/Face: Normocephalic, atraumatic Eyes: PERRL, EOMI, vision at baseline ENT: oral cavity clear, TMs clear, no signs of infection, missing teeth Neck: Trachea midline, supple, no nuchal rigidity Cardiovascular: RRR, normal S1/S2, No MRGs, no JVD Respiratory: CTAB, no respiratory distress, No rales or wheezes Abdomen: Soft, non-tender, non-distended, normal bowel sounds, no guarding or rebound. Skin: Warm, dry, normal turgor, no rash MS/Extremity: Pulses equal, no cyanosis, neurovascular intact, FROM Neuro: COAx4, GCS 15, strength 5/5, CN 2-12 intact, normal cerebellar exam, normal gait, Psych: Normal behavior, mood, and affect normal Extremities-trace edema without any palpable cords, Homans sign is negative Results (Laboratory/Radiology) Laboratory/Radiology Laboratory Tests Test 08/08/24 19:49 08/08/24 19:56 08/08/24 21:08 Urine Color COLORLESS (YELLOW) Urine Appearance CLOUDY (CLEAR) H Urine pH 5.0 (5.0-8.0) Urine Specific [place] 1.009 (1.001-1.031) Urine Protein NEGATIVE mg/dL (NEGATIVE) Urine Glucose (UA) NEGATIVE mg/dL (NEGATIVE) Urine Ketones NEGATIVE mg/dL (NEGATIVE) Urine Occult Blood MODERATE (NEGATIVE) H Urine Nitrate NEGATIVE (NEGATIVE) Urine Bilirubin NEGATIVE mg/dL (NEGATIVE) Urine Urobilinogen 0.2 mg/dL (0.2-1.0) Urine Leukocyte Esterase 75 [place]/uL (NEGATIVE) H Urine RBC 2-5 /HPF (0-1) H Urine WBC 2-5 /HPF (0-1) H Urine Squamous Epithelial Cells MOD /HPF (0-2) Urine Other Crystals (Auto) 3 /HPF (None Seen) Urine Amorphous Crystals (Auto) RARE /LPF (None Seen) Urine Bacteria RARE /HPF (None Seen) Urine Yeast FEW /HPF (None Seen) Urine HCG, Qualitative NEGATIVE (NEGATIVE) White Blood Count 8.6 K/uL (4.8-10.8) Red Blood Count 3.92 MIL/uL (4.00-5.50) L Hemoglobin 12.5 g/dL (12.0-16.0) Hematocrit 37.3 % (36-48) Mean Corpuscular Volume 95.2 fL (79-99) Mean Corpuscular Hemoglobin 31.9 pg (27.0-33.0) Mean Corpuscular Hemoglobin Concent 33.5 g/dL (32.0-36.0) Red Cell Distribution Width 12.8 % (11.0-15.5) Platelet Count 276 K/uL (130-400) Mean Platelet Volume 11.3 fL (7.5-10.5) H Immature Granulocyte % (Auto) 0.4 % (0-1) Neutrophils (%) (Auto) 63.5 % (40.0-77.0) Lymphocytes (%) (Auto) 25.1 % (21.0-51.0) Monocytes (%) (Auto) 7.8 % (3.0-13.0) Eosinophils (%) (Auto) 2.1 % (0.0-8.0) Basophils (%) (Auto) 1.1 % (0.0-5.0) Neutrophils # (Auto) 5.4 K/uL (1.8-7.7) Lymphocytes # (Auto) 2.2 K/uL (1.0-4.8) Monocytes # (Auto) 0.7 K/uL (0.1-1.0) Eosinophils # (Auto) 0.18 K/uL (0.00-0.70) Basophils # (Auto) 0.09 K/uL (0.00-0.20) Absolute Immature Granulocyte (auto 0.03 K/uL (0-1) Nucleated Red Blood Cells 0.0 % (0.0-0.19) Sodium Level 139 mmol/L (136-145) Potassium Level 3.9 mmol/L (3.5-5.1) Chloride Level 105 mmol/L (101-111) Carbon Dioxide Level 30 mmol/L (21-32) Blood Urea Nitrogen 4 mg/dL (7-18) L Creatinine 0.9 mg/dL (0.5-1.0) Glomerular Filtration Rate Calc 80 mL/min (>90) Random Glucose 88 mg/dL (70-105) Total Calcium 8.5 mg/dL (8.5-10.1) Total Creatine Kinase 78 U/L (21-232) # Troponin I High Sensitivity 4 ng/L (4-50) 4 ng/L (4-50) B-Type Natriuretic Peptide 37 pg/mL (0-100) Labs Reviewed?: Yes EKG Comment: Twelve lead EKG done on 08/08/2024 at 7:23 p.m. showed a heart rate of 67, NH interval 147, QRS 93, QT/QTC 410/433. Impression normal sinus rhythm with a diffuse ST T changes.-pericarditis or early ischemia. I have compared it with the EKG done on 05/15/2024 and it looks exactly similar. Interpreted by ER MD Dr. Acuna X-RAY Comment: REASON: chest pain ORDERING PHYSICIAN: ELVA ACUNA MD PROCEDURE: CXR1VW - CHEST 1VW PORTABLE CHEST RADIOGRAPH INDICATION: chest pain COMPARISON: 02/14/2022 FINDINGS: Heart size is normal. The pulmonary vascularity and jonathan appear normal. No abnormal pulmonary parenchymal opacity or consolidation identified. No significant pleural effusion noted. No pneumothorax detected. IMPRESSION: No radiographic evidence for any acute cardiopulmonary process. DICTATED BY: GEMMA PAUL MD DATE: 08/08/241948 ELECTRONICALLY SIGNED BY: GEMMA PAUL MD DATE: 08/08/241951 ED Course ED Course Orders Procedure Category Date Status Time Cbc With Differential LAB 08/08/24 Complete 19:20 B-Type Natriuretic LAB 08/08/24 Complete Peptide 19:20 Chest 1vw RAD 08/08/24 Resulted 19:20 12 Lead Ekg Tracing- EKG 08/08/24 Logged Technical 19:20 ,Urine Test LAB 08/08/24 Complete 19:20 Creatine Kinase, Total LAB 08/08/24 Complete 19:20 Troponin I High LAB 08/08/24 Complete Sensitivity 19:20 Urinalysis Profile LAB 08/08/24 Complete 19:20 Basic Metabolic Panel LAB 08/08/24 Complete 19:20 Culture Urine MARLEE 08/08/24 In Process 20:06 Ketorolac PHA 08/08/24 Complete Tromethamine 15mg/Ml 20:30 Troponin I High LAB 08/08/24 Complete Sensitivity 20:53 Current Medications Medications (Trade) Dose Ordered Sig/Brandie Route PRN Reason Start Time Stop Time Status Last Admin Dose Admin Ketorolac Tromethamine (toRADol) 15 mg ONCE ONCE IV 08/08/24 20:30 08/08/24 20:31 DC 08/08/24 20:36 Vital Signs Date Time Temp Pulse Resp B/P (MAP) Pulse Ox O2 Delivery O2 Flow Rate FiO2 08/08/24 19:18 98.1 88 20 133/92 99 Room Air 0 We will perform diagnostic labs, advanced imaging and administer medications according to the patient's complaint. Once the results are available, will review and personally interpreted the labs to rule out any acute life- threatening emergency the trach require immediate intervention and treatment. I will then re-evaluate the patient after treatment and diagnostic exams have return to determine whether the patient requires any further testing, can safely be discharged home or need further admission to hospital for additional treatment and evaluation. 830 p.m. reviewed labs-chest x-ray negative for any acute infiltrate. CBC BNP 7 are within normal limits 1st set of troponins is for 9:40 p.m. 2nd set of troponin was obtained which was also for I updated the patient on all the available information and presented to her that she has a very low risk cardiac score I counseled her extensively on smoking cessation and lifestyle changes. HEART Score Response (Comments) Value History: Low suspicion (0) 0 EKG: Repolarization changes 1 Age: 45-65yrs (+1) 1 Risk Factors: 1-2 risk factors (+1) 1 Initial Troponin: Normal limit (0) 0 HEART Score Risk: Low Risk for MACE (1-3) Total 3 Medical Decision Making MDM MDM: Differential diagnosis: Esophagitis, musculoskeletal, pericarditis, unstable angina Rationale: Tests considered and ordered secondary to shared decision making include: Previous outside records reviewed: Old ER visits. Risk of complication and/or morbidity or mortality of patient management: None Medications-Per medication reconciliation Need for hospitalization: Patient does not meet criteria for hospitalization. Need for emergency major/minor surgery: No There are no social concerns with this patient. Prescription drug management Prescriptions will include symptomatic care Patient's prior external medical records from other ER visits were reviewed by me as indicated. Prior testing and results from previous visits were reviewed. Prior tests were taken into account with medical decision making and resource utilization, independent historian/historians were used to obtain complete medical history. I independently interpreted the test that were performed, results were reviewed by me and considered findings on radiology if ordered. Medical management and examination interpretation discussions were had by me with other qualified healthcare professionals as indicated for the patient's care. Problem List Problem List: (1) Atypical chest pain (2) Nicotine dependence DX & DISP Disposition: Discharge Departure Impression: Primary Impression: Atypical chest pain Additional Impressions: Nicotine dependence, Gastritis Condition: Stable Additional Instructions: Patient and the caregiver have been informed of all the diagnostic tests and the imaging conducted during the today's visit to the emergency room and has verbalized understanding of the results I have personally reviewed and interpreted all diagnostic exams performed here in the ER today as well as the vital signs documented by the nursing staff. The patient is now being discha rged to home and should follow up with the primary care physician or the specialist as directed by the ER staff. Follow-up with primary care provider in 1 to 2 days. Take medications as directed here in the emergency room. Okay to continue home medications unless otherwise discussed during your visit in the emergency room today. Return to your nearest emergency room if symptoms worsen or if there is no improvement. Call 911 if you need immediate assistance. Take Tylenol or Motrin [id number] as needed and if no contraindications are present. Increase oral hydration. A wound culture or urine culture was ordered here in the emergency room department please follow-up with primary care provider and advise them to get repeat ports from our facility. If you had any Gino wrap/splints that were applied here, please do not remove them until you see your primary care or specialty. Referrals: ART VEGA (PCP) ELVA ACUNA MD Aug 08, 2024 19:37
--- NOTE | 2024-08-08 19:52 | HMCIMG ---
PORTABLE CHEST RADIOGRAPH INDICATION: chest pain COMPARISON: 02/14/2022 FINDINGS: Heart size is normal. The pulmonary vascularity and jonathan appear normal. No abnormal pulmonary parenchymal opacity or consolidation identified. No significant pleural effusion noted. No pneumothorax detected. IMPRESSION: No radiographic evidence for any acute cardiopulmonary process.
[2024-08-08 20:02] LABS: APPEARANCE,URINE CLOUDY (CLEAR); BILIRUBIN,URINE NEGATIVE (NEGATIVE); COLOR,URINE COLORLESS (YELLOW); GLUCOSE, URINE (UA) NEGATIVE (NEGATIVE); KETONES,URINE NEGATIVE (NEGATIVE); LEUKOCYTE ESTERASE ,URINE 75 Leu/uL (NEGATIVE); NITRATE,URINE NEGATIVE (NEGATIVE); OCCULT BLOOD,URINE MODERATE (NEGATIVE); PROTEIN,URINE NEGATIVE (NEGATIVE); UROBILINOGEN,URINE 0.2 mg/dL (0.2-1.0)
[2024-08-08 20:05] LABS: ADD UA MICROSCOPIC YES; HCG,QUALITATIVE URINE NEGATIVE (NEGATIVE)
[2024-08-08 20:09] LABS: BACTERIA,URINE RARE /HPF (None Seen); SQUAMOUS EPITHELIAL CELL,UR MOD /HPF (0-2); UNCLASSIFIED CRYSTAL 3 /HPF (None Seen); YEAST,URINE BUDDING FEW /HPF (None Seen)
[2024-08-08 20:22] LABS: BASOPHILS # (AUTO) 0.09 K/uL (0.00-0.20); BASOPHILS % (AUTO) 1.1 % (0.0-5.0); CREATININE 0.9 mg/dL (0.5-1.0); EOSINOPHILS # (AUTO) 0.18 K/uL (0.00-0.70); EOSINOPHILS % (AUTO) 2.1 % (0.0-8.0); HEMATOCRIT 37.3 % (36-48); IMMATURE GRANULOCYTE ABSOLUTE 0.03 K/uL (0-1); LYMPHOCYTES # (AUTO) 2.2 K/uL (1.0-4.8); LYMPHOCYTES % (AUTO) 25.1 % (21.0-51.0); MEAN CORPUSCULAR HEMOGLOBIN 31.9 pg (27.0-33.0); MEAN CORPUSCULAR HGB CONC 33.5 g/dL (32.0-36.0); MEAN CORPUSCULAR VOLUME 95.2 fL (79-99); MONOCYTES # (AUTO) 0.7 K/uL (0.1-1.0); MONOCYTES % (AUTO) 7.8 % (3.0-13.0); NEUTROPHILS # (AUTO) 5.4 K/uL (1.8-7.7); NEUTROPHILS % (AUTO) 63.5 % (40.0-77.0); PLATELET COUNT (AUTO) 276 K/uL (130-400); POTASSIUM 3.9 mmol/L (3.5-5.1); RED BLOOD CELL COUNT(AUTO) 3.92 MIL/uL (4.00-5.50); RED CELL DISTRIBUTION WIDTH 12.8 % (11.0-15.5); WHITE BLOOD COUNT (AUTO) 8.6 K/uL (4.8-10.8)
[2024-08-08] MEDS: ketOROlac 15MG/ML VIAL (15MG/ML) IV ONE (20:36)
[2024-08-08 20:44] LABS: B-TYPE NATRIURETIC PEPTIDE 37 pg/mL (0-100)
[2024-08-08 23:00] VITALS: BP 118/84; PULSE 82; RESP 16; TEMP 98; O2SAT 99
--- NOTE | 2024-08-09 07:10 | EKG ---
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
== END 2024-08-08 23:05 | disposition home or self-care (01) ==
LOC: EDH 19:17
DX: R07.89 Other chest pain (principal); K29.70 Gastritis, unspecified, without bleeding; F17.200 Nicotine dependence, unspecified, uncomplicated; E03.9 Hypothyroidism, unspecified; F41.9 Anxiety disorder, unspecified; Z79.899 Other long term (current) drug therapy; Z98.51 Tubal ligation status
CPT/HCPCS: 99284; 96374; 71045; 82550; 84484 ×2; 80048; 83880; 85025; 87086; 81001; 81025; 36415; 93005; J1885